=== PATIENT | male | born 1995 | race American Indian/Alaskan Native ===

== ENCOUNTER 2017-03-19 11:37 | Emergency (ER) | payer OTHER ==
[2017-03-19 12:53] VITALS: BP 129/95
[2017-03-19] MEDS ORDERED: FLEXERIL PO ONE (15:13)
[2017-03-19] MEDS ORDERED: MOTRIN PO ONE (15:13)
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
== END 2017-03-19 15:45 | disposition home or self-care (01) ==
LOC: ED 11:37
DX: S39.012A Strain of muscle, fascia and tendon of lower back, initial encounter (principal); F17.200 Nicotine dependence, unspecified, uncomplicated; V43.52XA Car driver injured in collision with other type car in traffic accident, initial encounter; Y93.89 Activity, other specified; Y92.89 Other specified places as the place of occurrence of the external cause; Y99.8 Other external cause status
CPT/HCPCS: 99282